=== PATIENT | female | born 1965 | race Caucasian/White ===

== ENCOUNTER → 2018-08-25 | Outpatient (CLI) | payer BC, OTHER ==
--- NOTE | 2018-08-25 18:31 | ECHO ---
[email or web address] [address] [address] Main: [phone] Fax: Transthoracic Echocardiogram Name: BRINA RAYA MR#: [id number] Study Date: 08/25/2018 Study Time: 03:23 PM Date of : 1965 Age: 52 year(s) Height: 170.2 cm (67 in.) Weight: 99.79 kg (220 lb.) BSA: 2.11 m2 Gender: Female Examination: Echo Indication: Chest Pain Image Quality: Contrast: Requested by: Juan Greenberg BP: / Heart Rate: Rhythm: Indication: Chest Pain Procedure Staff Plisse Machine Operator: Heather Miguel [facility] Reading Physician: Justine Pierre MD Requesting Provider: Conclusions: Normal size left ventricle. No LV hypertrophy. Normal global systolic LV function. The ejection fraction is estimated to be 65-70 %. No regional wall motion abnormality. Normal size right ventricle. Normal RV function. Mild to moderate mitral regurgitation. Mild tricuspid regurgitation is present. The pulmonary artery pressure is normal. RVSP is 33mmHG.. No pericardial effusion. Compared to 01/16/2009 overall similar findings Measurements: Chambers Valvular Assessment AV/MV Valvular Assessment TV/PV Normal Normal Normal Name Value Range Name Value Range Name Value Range Ao Johana (MM): 2.9 cm (2.2 cm-3.7 AV Vmax: 1.80 m/s (1 m/s-1.7 TR Vmax: 2.65 mm/s ( - ) cm) m/s) TR PGmax: 28 mmHg ( - ) IVSd (2D): 0.9 cm (0.6 cm-1.1 AV meanP mmHg ( - ) syst. PAP: 33 mmHg ( - ) cm) MV E Vmax: 0.80 m/s ( - ) LVDd (2D): 4.9 cm (3.9 cm-5.3 MV A Vmax: 0.61 m/s ( - ) cm) MV E/A: 1.31 ( - ) LVDs (2D): 3.2 cm (2.1 cm-4 cm) LVPWd (2D): 1.0 cm ( - ) LVOTd 2.0 cm 2.0 cm mm LVEF (MOD4): 68 % (>=55 %) EF Range: 65-70 % Patient: BRINA RAYA Study Date: 08/25/2018 Page 1 of 2 03:23 PM Continued Measurements: Chambers Valvular Assessment AV/MV Valvular Assessment TV/PV Name Value Name Value Name Value LADs: 3.8 cm MV E' Septal: 0.09 m/s CVP (est.): 5 mmHg LADs Lon.2 cm MV E/E' Septal: 9.30 LA Area: 19.2 cm2 MV E/E' Lateral: 6.40 LA Volume: 54 ml MR Vena Contracta: 0.3 cm LA Volume Index: 25.6 ml/m2 Additional Vessels Name Value Ao Ascendin.5 cm Findings: Left Ventricle: Normal size left ventricle. No LV hypertrophy. Normal global systolic LV function. The ejection fraction is estimated to be 65-70 %. No regional wall motion abnormality. Normal diastolic LV function. Right Ventricle: Normal size right ventricle. Normal RV function. Left Atrium: The left atrium is normal in size. Right Atrium: The right atrium is normal in size. Mitral Valve: The mitral valve is normal in appearance and function. Mild to moderate mitral regurgitation. Aortic Valve: The aortic valve is normal in appearance and function. The aortic valve is tri-leaflet. Trivial aortic valve regurgitation. Tricuspid Valve: The tricuspid valve is normal in appearance and function. Mild tricuspid regurgitation is present. The pulmonary artery pressure is normal. RVSP is 33mmHG.. Pulmonic Valve: The pulmonic valve is normal in appearance and function. Aorta: The aorta is normal. Pericardium: No pericardial effusion. There is pericardial fat. (No Signature Object) Patient: BRINA RAYA Study Date: 08/25/2018 Page 2 of 2 03:23 PM [id number]
== END ==
LOC: FCP 13:50
PROVIDERS: ATTEND Nurse Practitioner Family
DX: R06.00 Dyspnea, unspecified (principal); R06.02 Shortness of breath; R94.39 Abnormal result of other cardiovascular function study